=== PATIENT | male | born 1995 | race African-American/Black ===

== ENCOUNTER 2017-05-27 04:43 | Emergency (ER) | payer OTHER ==
[~2017-05-27] VITALS: Ht 175.3 cm; Wt 81.6 kg
[2017-05-27 04:55] VITALS: BP 138/77
[2017-05-27] MEDS ORDERED: ONDANSETRON 4 MG TAB.RAPDIS ONE (06:54)
[2017-05-27] MEDS ORDERED: IBUPROFEN 400 MG TABLET ONE (06:54)
[2017-05-27] MEDS ORDERED: IBUPROFEN 400 MG TABLET PO ONE (07:00)
[2017-05-27] MEDS ORDERED: ONDANSETRON 4 MG TAB.RAPDIS SL ONE (07:00)
== END 2017-05-27 07:06 | disposition home or self-care (01) ==
LOC: ER 04:43
DX: J11.1 Influenza due to unidentified influenza virus with other respiratory manifestations (principal); F17.200 Nicotine dependence, unspecified, uncomplicated; Z98.890 Other specified postprocedural states
CPT/HCPCS: 99283; A4606; Q0162; Z7610